=== PATIENT | female | born 1990 ===

== ENCOUNTER 2021-10-23 11:21 | Day surgery (SDC) | payer OTHER ==
[~2021-10-23] VITALS: Ht 162.6 cm; Wt 81.6 kg
== END 2021-10-23 17:10 | disposition home or self-care (01) ==
LOC: CIR.AMB 11:21
PROVIDERS: ATTEND Obstetrics & Gynecology
DX: O02.1 Missed abortion (principal); Z20.822 Contact with and (suspected) exposure to COVID-19; Z88.0 Allergy status to penicillin